=== PATIENT | female | born 1985 | race African-American/Black ===

== ENCOUNTER 2017-01-22 16:48 | Emergency (ER) | payer MEDICARE ==
[2017-01-22 17:10] LABS: BASOPHIL% 0.8 % (0-2.5); EOSINOPHIL# 0.1 X10e3 (0-0.7); EOSINOPHIL% 2.3 % (0.0-7.0); HEMATOCRIT 41.4 % (35.0-45.0); HEMOGLOBIN 13.5 gm/dL (12.0-16.0); LYMPHOCYTE# 1.8 X10e3 (1.0-3.5); LYMPHOCYTE% 53.5 % (17.0-45.0); MEAN CORPUSCULAR HEMOGLOBIN 29.3 PG (28-34); MEAN CORPUSCULAR HGB CONC 32.6 g/dL (30-36); MEAN PLATELET VOLUME 9.2 FL (6.5-11.5); MONOCYTE# 0.3 X10e3 (0-1.0); MONOCYTE% 10.1 % (3.0-12.0); NEUTROPHIL# 1.1 X10e3 (1.5-7.1); NEUTROPHIL% 33.3 % (40-75); PLATELET COUNT 170 X10e3 (140-420); RED BLOOD COUNT 4.59 X10e (3.90-5.30); RED CELL DISTRIBUTION WIDTH 13.1 % (11.0-15.5); WHITE BLOOD COUNT 3.4 X10e3 (4.0-10.5)
[2017-01-22 17:17] LABS: AMPHETAMINE NEG (NEG); BARBITURATES NEG (NEG); BENZODIAZEPINES NEG (NEG); COCAINE NEG (NEG); MARIJUANA NEG (NEG); OPIATES NEG (NEG); TRICYCLIC ANTIDEPRESSANTS NEG (NEG); U METHADONE NEG (NEG)
[2017-01-22 17:19] LABS: DIFF IND YES
[2017-01-22 17:30] LABS: ALBUMIN SERUM 4.4 g/dL (3.5-5.0); ALKALINE PHOSPHATASE 77 U/L (32-92); ALT (SGPT) 51 U/L (10-40); AST (SGOT) 35 U/L (10-42); BILIRUBIN, DIRECT 0.1 mg/dL (0.0-0.2); BILIRUBIN,INDIRECT 0.5 mg/dL (0.0-0.9); BILIRUBIN,TOTAL 0.6 mg/dL (0.2-2.0); BLOOD UREA NITROGEN 9 mg/dL (9-23); CALCIUM SERUM 8.9 mg/dL (8.4-10.2); CARBON DIOXIDE 25 mmol/L (22-31); CHLORIDE 99 mmol/L (100-111); CREATININE SERUM 0.9 mg/dL (0.6-1.4); GLOM FILT RATE Estimated 99.5 mL/min (>60); GLUCOSE FASTING 99 mg/dL (70-110); POTASSIUM 3.4 mmol/L (3.5-5.1); SALICYLATE <4.0 mg/dL; SODIUM 135 mmol/L (135-145)
[2017-01-22 17:31] LABS: ACETAMINOPHEN <10 ug/mL; ALCOHOL BLOOD <5 mg/dL (0)
[2017-01-22 17:54] LABS: ANISOCYTOSIS SL; PLATELET ESTIMATE NORMAL (NORMAL)
== END 2017-01-22 22:35 ==
LOC: CED 16:48
PROVIDERS: Emergency Medicine
DX: R45.851 Suicidal ideations (principal); R45.850 Homicidal ideations; F17.210 Nicotine dependence, cigarettes, uncomplicated
CPT/HCPCS: 36415; 80048; 80076; 80307; 84703; 85025; 99285; G0480

== ENCOUNTER 2017-01-22 23:33 | Inpatient (IN) | payer SELFPAY ==
--- NOTE | ~2017-01-22 | PA ---
Unit #: [id number] #: [id number] Patient: MICHAEL GARCIA [id number] [facility] [address] [place] [address] [id number] MR#: [id number] NAME: MICHAEL GARCIA ROOM: [facility] Age: 31 Sex: F Admission Date: 01/22/2017 : 1985 Date of Assessment: 01/23/2017 Attending Physician: Ivan Miranda M.D. Admitting Physician: Ivan Miranda M.D. Primary Care Physician: Primary Care Physician No PSYCHIATRIC ASSESSMENT IDENTIFYING INFORMATION The patient is a 31-year-old female admitted in transfer from [facility] where she had presented voicing homicidal ideation towards a former work supervisor accounting clerks. CHIEF COMPLAINT None given. INFORMANT Patient, reliability is poor. HISTORY OF PRESENT ILLNESS The patient is a 31-year-old female admitted to the [address] [place] [address] Unit in transfer from [facility]. She had reported positive homicidal ideation towards a former supervisor accounting clerks at [employer] whom she accuses of unjustly firing her trying to "keep black women like me down." The patient reports that she was fired in May but continues to harbor thoughts of beating this person with a baseball bat. The patient reports that she was "fired for no reason." The patient reports of one previous psychiatric hospitalization this having taken place while residing in [place], [place], where she had resided prior to moving to [place] to work at the [employer]. She has since her firing in May not been employed stating that she does not wish to work for a salary less than that offered by [employer]. The patient denies recent changes in sleep or appetite. During interview, the patient is quite labile, loud, and with pressured speech, and looks to be exhibiting symptoms consistent with a possible bipolar manic episode. PAST PSYCHIATRIC HISTORY The patient reports a history of one previous psychiatric hospitalization, and she is at this time prescribed Prozac. She does report a history of treatment with Abilify and reports that she had recently been doing well on this medication. PAST MEDICAL HISTORY Noncontributory. MEDICATIONS Prozac. ALLERGIES None reported. Unit #: [id number] #: [id number] Patient: MICHAEL GARCIA FAMILY HISTORY The patient reports a positive family history of mood disorder. SOCIAL HISTORY The patient is a [place] of [place], [place]. She states that she has a 2-year Associates Degree but is presently unemployed under circumstances noted previously. She does admit to abuse of alcohol and lives in a townhouse with her best friend. MENTAL STATUS EXAMINATION Examination at this time reveals the patient to be a well-developed well-nourished female appearing stated age. She is in no apparent physical distress at the time of examination. She is awake, alert, and oriented in all spheres. Her mood is irritable, her affect labile. Speech is loud and pressured, and frequently profane. There are no gross deficits in memory or cognition noted. Intelligence is judged to be in the average range based on fund of knowledge. The patient is less than optimally cooperative during the interview. She is currently denying suicidal ideation but continues to endorse positive homicidal ideation. She denies any psychotic symptoms. Her judgment and insight appear to be significantly impaired. ASSETS AND LIABILITIES The patient's assets are to be assessed. Liabilities: Lack of resources, unemployment. DIAGNOSTIC IMPRESSION Bipolar disorder, manic phase TREATMENT PLAN The patient remains hospitalized for safety and stabilization. A trial of Geodon 40 mg twice daily will be initiated with rapid upward titration to take place. The patient will participate in appropriate order of milieu activities. ESTIMATED LENGTH OF STAY 5 to 7 days. Of course, appropriate Duty to Warn will be undertaken as the patient has identified by name the target of her homicidal threats. I have explained the necessity for a Duty To Warn to the patient, and she has expressed great displeasure that this will take place. Dictated by... Ivan Miranda M.D. NATHAN/marcial TD: 01/23/2017 14:46 JOB #: [id number] Unit #: [id number] #: [id number] Patient: MICHAEL GARCIA PSYCHIATRIC ASSESSMENT Page 1 of 1 X Ivan Miranda MD PSYCHIATRIC ASSESSMENT
--- NOTE | ~2017-01-22 | HP ---
Unit #: [id number] #: [id number] Patient: MICHAEL GARCIA [id number] [place] [address] [id number] MR#: [id number] NAME: MICHAEL GARCIA ROOM: [facility] Age: 31 Sex: F Admission Date: 01/22/2017 : 1985 Attending Physician: Ivan Miranda M.D. Admitting Physician: Ivan Miranda M.D. Primary Care Physician: Primary Care Physician No HISTORY AND PHYSICAL HISTORY OF PRESENT ILLNESS Michael is a 31 year old admitted to [address] [place] [address] with psychotic behavior. She is a poor historian so her history is taken from her chart. PAST MEDICAL HISTORY History of alcohol abuse. PAST SURGICAL HISTORY Nothing reported. ALLERGIES No known drug allergies. SOCIAL HISTORY She does not smoke. Drinks a liter of liquor on a daily basis and admits to using marijuana on occasion. FAMILY HISTORY Medically noncontributory. REVIEW OF SYSTEMS She does not answer questions appropriately. There are no reports of nausea, vomiting or diarrhea. She has had no cough or increased temperature. CURRENT MEDICATIONS 1. Detox protocol. 2. Geodon 40 mg b.i.d. 3. Multivitamin 1 daily. PHYSICAL EXAMINATION GENERAL: Alert, well-nourished, in no apparent distress. VITAL SIGNS: Blood pressure 118/70, heart rate 100, respirations 16, temperature 98.6. WEIGHT: 199. HEIGHT: 5 feet 5 inches. SKIN: Warm and dry without rash or lesion. HEENT: Normocephalic. TMs not viewed. Oral and nasal passages clear. Conjunctivae clear. PERRLA. EOMs intact. NECK: Supple without lymphadenopathy or thyromegaly. HEART: Regular rate and rhythm without murmur. LUNGS: Clear. ABDOMEN: Soft, nontender. Unit #: [id number] #: [id number] Patient: MICHAEL GARCIA : Not done. EXTREMITIES: No evidence of cyanosis, clubbing or edema. Moves all without focal deficit. NEUROLOGICAL: Grossly within normal limits. Cranial Nerves: II: Visual hays are intact. III, IV AND : Extraocular movements are intact. Pupils are equal, round and reactive to light. V: Facial sensation is grossly normal. VII: Facial movements and expression are normal. VIII: Auditory acuity grossly intact. IX, X: Uvula is midline. Phonation is normal. XI: Patient shrugs shoulders and turns head normally. XII: Tongue protrudes in the midline. Sensory and Motor Function: Sensory and motor sensation is grossly normal. Motor: moves all extremities well. Coordination: Gait is normal. Deep Tendon Reflexes: Intact. IMPRESSION Psychiatric admission. RECOMMENDATIONS PSYCHIATRIC: Per psychiatrist. MEDICAL: See no contraindication to participate in facility's activities. MEDICAL PROGNOSIS Good. MEDICAL CONDITION Stable. Dictated by... Esmer Ferrer P.A.-C. for Kyra Sullivan/meera TD: 01/23/2017 19:47 JOB #: [id number] HISTORY AND PHYSICAL Page 1 of 1 X Esmer Ferrer X HISTORY AND PHYSICAL
--- NOTE | ~2017-01-22 | DS ---
Unit #: [id number] #: [id number] Patient: MICHAEL GARCIA [id number] [facility] [address] [place] [address] [id number] MR#: [id number] NAME: MICHAEL GARCIA ROOM: [facility] Age: 31 Sex: F Admission Date: 01/22/2017 : 1985 Discharge Date: 01/24/2017 Attending Physician: Ivan Miranda M.D. Primary Care Physician: Primary Care Physician No DISCHARGE SUMMARY REASON FOR ADMISSION The patient is a 31-year-old female, admitted in what appears to have been a manic episode of bipolar illness, which resolved very rapidly. HOSPITAL COURSE The patient was admitted to the [address] [place] [address] unit and placed on suicide precautions. She was begun on Geodon 40 mg b.i.d. after having required a p.r.n. dose of Geodon on 01/23/2017. By 01/24/2017, the patient was contrite over the ensuing hospitalization. She was pleasant, calm, cooperative, and was vehemently denying any suicidal or homicidal thoughts. She reported that the homicidal threats which she had made previously were "just thoughts" and she stated that she had no intent on acting on those. Nonetheless, appropriate duty to warn was attended to at the time of discharge. The patient was not felt to meet criteria for ongoing involuntary hospitalization on 01/24/2017 and discharge was ordered. FINAL DIAGNOSIS Brief reactive psychosis. DISCHARGE MEDICATIONS The patient is discharged on the following medication, Geodon 40 mg b.i.d. for psychosis. FOLLOWUP Followup will take place through the auspices of [facility] mental health resources. It is the suspicion of this physician that the patient probably does have a bipolar spectrum disorder; however, the rapidity with which her symptoms resolve may gabriela this belief. She did seem to respond well to Geodon and will continue on this medication at least until she can be followed through the auspices of [facility] mental health resources. Dictated by... Ivan Miranda M.D. CB/kushal TD: 01/24/2017 14:02 JOB #: [id number] Unit #: [id number] #: [id number] Patient: MICHAEL GARCIA DISCHARGE SUMMARY Page 1 of 1 X Ivan Miranda MD DISCHARGE SUMMARY
== END 2017-01-24 12:00 | disposition home or self-care (01) | DRG 885 ==
LOC: P1E 23:33 → P1S 01-23 14:12
PROC: HZ2ZZZZ Detoxification Services for Substance Abuse Treatment (ICD-10-PCS; principal; 2017-01-22)
DX: F31.10 Bipolar disorder, current episode manic without psychotic features, unspecified (principal); F23 Brief psychotic disorder
CPT/HCPCS: 86592; J1200; J1630; J2060; J3486